=== PATIENT | female | born 1945 | race African-American/Black ===

== ENCOUNTER → 2016-10-06 | Day surgery (SDC) | payer MEDICARE, BC ==
[~2016-10-06] MED LIST: Acetaminophen TAB* 325 MG PO PRN; Albuterol 2.5 MG/3 ML NEB.SOL* (0.083%) INH ONE; Albuterol 2.5 MG/3 ML NEB.SOL* (0.083%) ONE; Buffered Lidocaine 1% SYR 3ML* 3 ML/SYR SYRINGE INTRADERM ONE; Buffered Lidocaine 1% SYR 3ML* 3 ML/SYR SYRINGE ONE; Dexamethasone IV* 4 MG/ML 1 ML (4 MG) ONE; DiMENhydriNATE IV* 50 MG/ML VIAL IV PUSH PRN; DiMENhydriNATE IV* 50 MG/ML VIAL ONE; Famotidine IV* 10 MG/ML 2 ML (20 mg) IV ONE; Famotidine IV* 10 MG/ML 2 ML (20 mg) ONE; Glycopyrrolate IV* 0.2 MG/ML 1 ML VIAL ONE; Ketorolac INJ* 30 MG/ML 1 ML VIAL ONE; Lidocaine 2% MPF* 2 ML VIAL ONE; Midazolam* 1 MG/ML 5 ML VIAL (5 MG) ONE; Ondansetron INJ* 2 MG/ML VIAL ONE; Propofol* 10 MG/ML 20 ML BTL IV PUSH ONE; ceFOXitin 2 GM IVPREMIX* 2 GM/50 ML BAG ONE; fentaNYL* 50 MCG/ML 2 ML VIAL (100 MCG VIAL) ONE
[2016-10-06 09:32] LABS: Hematocrit 37 % (35-47); Mean Corpuscular HGB Conc 32 g/dl (31-36); Mean Corpuscular Hemoglobin 28 pg (27-31); Mean Corpuscular Volume 88 fL (80-97); Mean Platelet Volume 10 um3 (7.4-10.4); Red Blood Count 4.26 10^6/ul (4.0-5.4); Red Cell Distribution Width 13 % (10.5-15); White Blood Count 6.4 10^3/ul (3.5-10.8)
[2016-10-06 09:48] LABS: Albumin 4.1 g/dL (3.2-5.2); BUN/Creatinine Ratio 18.3 (8-20); EGFR Non-African American 59.1 (>60); Globulin 2.9 g/dL (2-4); Potassium 3.6 mmol/L (3.5-5.0); Total Bilirubin 1.1 mg/dL (0.2-1.0)
[2016-10-06 12:00] VITALS: BP 150/63
--- NOTE | 2016-10-07 00:16 | OP ---
DATE OF OPERATION: 10/06/16 [facility] DATE OF : 41 SURGEON: Margarita Telles MD CHIEF ANALYTICS OFFICER: None. ANESTHESIOLOGIST: Dr. Chacon. ANESTHESIA: General. PRE-OP DIAGNOSIS: Intrauterine mass. POST-OP DIAGNOSIS: Intrauterine mass. OPERATIVE PROCEDURE: Failed attempt of dilation, curettage, and hysteroscopy. ESTIMATED BLOOD LOSS: Minimal. URINE OUTPUT: 200 cc of clear yellow urine. FLUIDS: 1000 cc of crystalloid. FINDINGS: Revealed palpable cervix, stenotic without identifiable external cervical os, evidence of an old suture line in the anterior vaginal wall anterior to what appears to be the cervical body. COMPLICATIONS: None apparent. DISPOSITION: Stable to recovery room. DESCRIPTION OF PROCEDURE: The patient was placed in dorsal lithotomy position after undergoing general anesthesia. Legs were placed in Emerson Valentin Stirrups. The perineum and vagina were prepped and draped in the sterile standard fashion. The patient was identified with universal protocol for correct procedure, patient, and position. A self-cath was used to drain the bladder for 200 cc of clear yellow urine, self-catheter was removed. Sterile speculum was inserted into the cervix what appeared to be the cervix was noted. Speculum was removed and a bimanual exam was performed to clearly assure that this indeed was the cervix based on its location. Careful exam was carried out of the anterior vaginal wall. There appeared to be an old suture line or perhaps old scarring on the anterior vaginal wall where the anterior lip of the cervix should have been. A single tooth- tenaculum was placed on the anterior lip of the cervix and using lacrimal duct probe, an attempt was made to identify the external cervical os. Multiple attempts were made with the lacrimal duct probe. There was no evidence of any cervical opening to be noted. At this point, given the unidentifiable cervical os and the concern of possible perforation and the risks associated with it, decision was made to terminate the case as a failed attempt of cervical dilation, curettage, and hysteroscopy. Sterile speculum and single-tooth tenaculum were removed and the patient was taken to recovery room in stable condition. All sponge, instrument , and blade counts were correct throughout the case. [id number] #: [id number] MTDD
== END | disposition home or self-care (01) ==
LOC: OR 08:42
PROVIDERS: ATTEND Obstetrics & Gynecology
DX: D25.9 Leiomyoma of uterus, unspecified (principal); N88.2 Stricture and stenosis of cervix uteri; I10 Essential (primary) hypertension; J45.909 Unspecified asthma, uncomplicated; M06.9 Rheumatoid arthritis, unspecified
CPT/HCPCS: 36415; 80053; 85025; 86850; 86900; 86901; J0694; J1100; J1240; J1885; J2250; J2405; J2704; J3010